=== PATIENT | male | born 1995 | race Caucasian/White ===

== ENCOUNTER 2023-08-30 10:33 | Emergency (ER) | payer SELFPAY ==
[2023-08-30 11:04] VITALS: BP 150/75; PULSE 61; TEMP 36.9; O2SAT 97; BMI 20.9
[2023-08-30 11:29] VITALS: BP 149/95; PULSE 62; RESP 16; O2SAT 98
--- NOTE | 2023-08-30 11:53 | ED_ITS ---
HPI - Eye Problem General: Chief complaint: Eye Problems Stated complaint: eye issues Time Seen by Provider: 08/30/23 11:33 Source: patient Mode of arrival: ambulatory Limitations: no limitations History of Present Illness: This patient complains of slight alteration in his vision sensitivity to his right eye that has been present over the last probably 36 hours or so. 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 He states he did not suffer any significant head trauma or blows to the head etc. He states that he did not think much of the time but has noted subsequently that his right pupil appears to be more dilated and is more sensitive to light. He denies any foreign body sensation or eye pain. He denies other injury at this time. He does not wear contact lenses or any other corrective lens. He is normally in good health takes no medications. He does not use scopolamine patches but does add that his girlfriend has had a patch that she has been putting on her skin after knee surgery. chief complaint: eye injury Location: right eye Associated symptoms: Denies fever(s), headache(s) or neck pain Review of Systems Const: Denies: fever(s) Eyes: Reports: change in vision and blurry vision; Denies: eye discharge, eye redness or seeing flashes ENMT: Denies: throat pain, odynophagia, nasal discharge or nasal congestion Musc: Denies: neck pain, back pain, extremity pain or extremity swelling Skin/Breast: Denies: rash, pruritus or erythema Neuro: Denies: headache(s), numbness in extremities, weakness in extremities, dizziness or vertigo Physical Exam Narrative: EXAM NARRATIVE: The patient is alert and appears to be in no acute distress. Makes good eye contact speech is goal-directed. Right eye is obviously dilated to confrontation. Const: COMMON NORMALS: no acute distress, average body habitus and patient oriented x3 GENERAL APPEARANCE: cooperative and comfortable HENMT: COMMON NORMALS: normocephalic, atraumatic, TM's normal bilaterally, Normal nasal mucous membranes and turbinates present, moist oral mucous membranes and oropharynx normal HEAD & SCALP: normocephalic and atraumatic FACE & SINUS: normal facial exam NOSE: Normal nasal mucous membranes and turbinates present TYMPANIC MEMBRANE: TM's normal bilaterally Eye: COMMON NORMALS: EOMs intact bilaterally, conjunctivae normal, no scleral icterus, normal visual koroma by confrontation and fundi normal bilaterally (To a nondilated exam) VISUAL ACUITY: Yes acuity normal, Yes visual acuity right eye (20/25) and Yes visual acuity left eye (20/25) EYELID: eyelids normal CONJUNCTIVA: Yes conjunctivae normal CORNEA: Yes corneas normal and fluorescein used (No evidence of fluorescein uptake or defect in the cornea) PUPIL: Yes pupil size - right (Right pupil is approximately 8 to 10 mm) and Yes pupil size - left (Left pupil is approximately 2 to 3 mm) DIRECT OPHTHALMOSCOPY: Yes fundi normal bilaterally (To a nondilated exam) OTHER: The right pupil is dilated and does not seem to respond significantly to direct or consensual light stimulation. Neck/C-Spine: COMMON NORMALS: full ROM and no lymphadenopathy Resp: COMMON NORMALS: normal respiratory effort Extremity: COMMON NORMALS: normal to inspection Neuro: COMMON NORMALS: patient oriented x3, moves all extremities, no focal motor deficits, no sensory deficits noted and deep tendon reflexes 2+ bilateral ly CRANIAL NERVES: Yes CN normal except as noted (Right eye) PUPIL EXAM: Dilated: right Psych: COMMON NORMALS: mental status grossly normal Skin: COMMON NORMALS: no rashes or lesions noted and no wounds GENERAL SKIN EXAM: no rashes or lesions noted Course Reevaluation(s): Reevaluation #1: Further history obtained when asked about any medications in the house he states he does not use any medication other than some ibuprofen occasionally. He does relate that his girlfriend has just had knee surgery and she has some nausea patch. Unaware of he if he could have come in contact with her patch. He states that she put some on herself but he is unaware of whether she washes her hands after application etc. Time: 12:08 Reevaluation #2: Unable to determine exactly if he was exposed to scopolamine or not however a more detailed and additional history was obtained to ensure there is no other associated symptoms. He states she did note a headache yesterday that seemed like a migraine headache for him that he occasionally gets anyway. Given his current pupillary dilatation I think it is reasonable for us to go and get a quick CT scan and angiogram to make sure that there is no absolute evidence of possible aneurysmal bleeding etc. Time: 13:08 Reevaluation #3: Patient was reevaluated while giving him current results and plan and was noted that his right pupil was now less dilated than noted on presentation supporting the likelihood that this is medication related. Time: 15:26 Consultations: Consultation #1: I did discuss with on-call biological science technician fish Dr. Ryan and reviewed his current history. While it is somewhat possible and likely that the scopolamine be a factor we certainly cannot assume that as we cannot confirm it. Will go ahead and electively put him on prednisone forte and have him see an ophthalmology. Time: 12:55 Vital Signs: Vital signs: Vital Signs Temperature 98.5 F 08/30/23 11:04 Pulse Rate 62 08/30/23 11:29 Respiratory Rate 16 08/30/23 11:29 Blood Pressure 149/95 08/30/23 11:29 Pulse Oximetry 98 08/30/23 11:29 Oxygen Delivery Me thod Room Air 08/30/23 11:29 MDM - Eye Problem Medical Decision Making Patient presented to our emergency department with concerns about a dilated right pupil. His only history was of significance and that he is was poked in the eye during millimeters and a training on Thursday evening. He also developed a headache sometime Thursday and and sometime either before or after it is not cleared noted his right pupil was dilated which is continued through today. He has had no other neurologic symptoms and denies any sustained headache etc. He denies any head trauma related to his episode on Thursday night. He takes no medications but does relate did relate that his girlfriend had is a nausea patch on her neck that she was using post knee surgery over the past few days. It is unclear whether you came in contact with her or the patch that might be a contributing factor. Clinical examination showed cystically dilated right pupil which was unreactive to direct or consensual light. No other abnormal findings on ocular exam to include normal visual acuity normal extraocular motion, no fluorescein stain uptake and a quiet clear cornea and sclera. While unlikely given his presentation there was certainly a possibility that he was having an occult compression of the 3rd nerve by undiagnosed aneurysm or other intracranial pathology and therefore imaging was obtained. This was reassuring. Ophthalmology was consulted and agreed to see the patient in follow-up. And ree xamination after he returned from CT scan and has now been in the emergency department for approximately 4 hours his right pupil is now constricted to approximately 6 mm supports that this is medication related issue.. This was all reviewed and discussed with the patient. If in fact it is related to a possible scopolamine exposure which occurred inadvertently this should improve over the next 12 to 24 hours. Lab Data Radiology Impressions Head CT 08/30/23 13:08 IMPRESSION: No acute intracranial abnormality. 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 Condition: Stable Prescriptions: No Action No Known Home Medications Discharge Orders: Discharge ED (Routine); Ordered 08/30/23 Ordered By: Oscar Sharpe Referrals: Santiago Simeon MD [Primary Care Provider] - Serafin Ryan [Physician] - 1-3 days (follow up on mydriatic right pupil) Discharge Diet: Advance as tolerated Discharge Activity: Resume usual activity Patient Instructions: Opioid Safety, Pain Management Activity Restrictions/Additional Instructions: As we discussed the findings in the emergency department are reassuring without any evidence that there was any intracranial process affecting your pupil dilation. It would appear that it is related to some inadvertent exposure to the medication your girlfriend had on the patch. However as we also discussed if your eyes not back to normal in 24 hours you should [address] Ryan's office for reevaluation if you develop any new or worsening symptoms you are welcome to return to the emergency department for recheck. Coding Level of Care Code ED Hand Tacker for Pedro Luis Waller
[2023-08-30] MEDS: fluorescein 1 mg Strip EYE-RIGHT (12:05)
[2023-08-30] MEDS: eye irrigation 30 mL Btl EYE-LEFT (12:05)
--- NOTE | 2023-08-30 13:08 | CTR_ITS ---
PROCEDURE INFORMATION: Exam: CT Head Without And With Contrast Exam date and time: 08/30/2023 2:04 PM Age: 27 years old Clinical indication: Pain; Other: Dilated right pupil; Headache not specified; Additional info: Dilated pupil right-headache previously TECHNIQUE: Imaging protocol: Computed tomography of the head without and with contrast. Radiation optimization: All CT scans at this facility use at least one of these dose optimization techniques: automated exposure control; mA and/or kV adjustment per patient size (includes targeted exams where dose is matched to clinical indication); or iterative reconstruction. Contrast material: OMNI 350; Contrast volume: 80 ml; Contrast route: INTRAVENOUS (IV); COMPARISON: No relevant prior studies available. RADIATION DOSE METRICS: Total DLP (mGy-cm): 1990.98 FINDINGS: Brain: There is no intracranial effect or midline shift. There is no acute intracranial hemorrhage or abnormal extra-axial collection identified. Stanford-white differentiation appears preserved. Cerebral ventricles: The lateral ventricles are symmetric in size but there is no hydrocephalus. Paranasal sinuses: There is mild sinus mucosal disease, with no air-fluid level identified. Mastoid air cells: There is no mastoid effusion detected. Orbital cavities: Visualized orbits are unremarkable by CT. Bones: Unremarkable. No acute fracture. Soft tissues: Unremarkable. Other findings: After contrast administration, is no abnormal enhancement demonstrated. CT/CT head wo/w con [id number] IMPRESSION: No acute intracranial abnormality.
[2023-08-30] MEDS: iohexol 350 mg/mL 500 mL Btl (per mL) IV (14:06)
[2023-08-30 16:08] VITALS: BP 157/74; PULSE 60; RESP 16; TEMP 36.9; O2SAT 99
== END 2023-08-30 15:41 | disposition home or self-care (01) ==
PROVIDERS: Emergency Provider Emergency Medicine; PCP General Practice
DX: H57.04 Mydriasis (principal)
CPT/HCPCS: 70470; 99284; Q9967